=== PATIENT | female | born 1960 | race Caucasian/White ===

== ENCOUNTER 2016-08-12 18:47 | Observation (INO) | payer MEDICARE ==
[2016-08-12] MEDS ORDERED: ASPIRIN CHEW 81 MG TABLET ONE (20:11)
[2016-08-12] MEDS ORDERED: ASPIRIN CHEW 81 MG TABLET PO STA (20:11)
[2016-08-12] MEDS ORDERED: PROCHLORPERAZINE 10 MG/2 ML VIAL IVP PRN (20:21)
[2016-08-12] MEDS ORDERED: ZOLPIDEM 5 MG TABLET PO PRN (20:21)
[2016-08-12] MEDS ORDERED: oxyCODONE 5 MG TABLET PO PRN (20:21)
[2016-08-12] MEDS ORDERED: ONDANSETRON 4 MG/2 ML VIAL IVP PRN (20:21)
[2016-08-12] MEDS ORDERED: SODIUM CHLORIDE FLUSH 0.9% 10 ML SYRINGE IVP PRN (20:21)
[2016-08-12] MEDS ORDERED: PREGABALIN 150 MG PO SCH (21:00)
[2016-08-12] MEDS ORDERED: ATORVASTATIN 40 MG TABLET PO SCH (21:00)
[2016-08-12] MEDS ORDERED: METOPROLOL TARTRATE 25 MG TABLET PO SCH ×2 (21:00→23:24)
[2016-08-12] MEDS ORDERED: IOPAMIDOL-300 100 ML VIAL IVP ONE (21:33)
[2016-08-12] MEDS ORDERED: POTASSIUM CHLORIDE 20 MEQ TABLET PO STA (21:55)
[2016-08-12] MEDS: PREGABALIN 25 MG CAPSULE PO SCH (21:57)
[2016-08-12] MEDS: oxyCODONE 5 MG TABLET PO PRN (21:58)
[2016-08-12] MEDS: FLUTICASONE NASAL SPRAY NAS SCH (21:58)
[2016-08-12] MEDS: SODIUM CHLORIDE FLUSH 0.9% 10 ML SYRINGE IVP SCH (21:58)
[2016-08-12] MEDS: CYCLOBENZAPRINE 10 MG TABLET PO SCH (21:58)
[2016-08-12] MEDS: PREGABALIN 100 MG CAPSULE PO SCH (21:58)
[2016-08-12] MEDS: ALPRAZolam 0.25 MG TABLET PO SCH (22:05)
[2016-08-12] MEDS: lamoTRIgine 100 MG TABLET PO SCH (22:05)
[2016-08-12] MEDS: ACETAMINOPHEN 325 MG TABLET PO PRN (23:41)
[2016-08-12] MEDS: METOPROLOL TARTRATE 25 MG TABLET PO SCH (23:56)
[2016-08-13] MEDS: ACETAMINOPHEN 325 MG TABLET PO PRN ×2 (06:07→11:50)
[2016-08-13] MEDS: CYCLOBENZAPRINE 10 MG TABLET PO SCH (06:08)
[2016-08-13] MEDS: SODIUM CHLORIDE FLUSH 0.9% 10 ML SYRINGE IVP SCH (06:09)
[2016-08-13] MEDS: oxyCODONE 5 MG TABLET PO PRN (06:31)
[2016-08-13] MEDS ORDERED: PANTOPRAZOLE 40 MG TABLET PO SCH (07:00)
[2016-08-13] MEDS ORDERED: ASPIRIN 325 MG TABLET PO SCH (08:00)
[2016-08-13] MEDS: METOPROLOL TARTRATE 25 MG TABLET PO SCH (08:21)
[2016-08-13] MEDS: PREGABALIN 100 MG CAPSULE PO SCH (08:22)
[2016-08-13] MEDS: PREGABALIN 25 MG CAPSULE PO SCH (08:23)
[2016-08-13] MEDS: ALPRAZolam 0.25 MG TABLET PO SCH (08:23)
[2016-08-13] MEDS: lamoTRIgine 100 MG TABLET PO SCH (08:34)
[2016-08-13] MEDS: FLUTICASONE NASAL SPRAY NAS SCH (08:35)
[2016-08-13] MEDS ORDERED: POLYETHYLENE GLYCOL 3350 17 GM PACKET PO SCH (09:00)
[2016-08-13] MEDS ORDERED: DULoxetine 30 MG CAPSULE PO SCH (09:00)
[2016-08-13] MEDS ORDERED: ENOXAPARIN 40 MG/0.4 ML SYRINGE SUBQ SCH (09:00)
[2016-08-13] MEDS ORDERED: lamoTRIgine 100 MG TABLET PO SCH (10:10)
[2016-08-14] MEDS ORDERED: fentaNYL 25 MCG PATCH TOP SCH (09:00)
== END 2016-08-13 13:40 | disposition home or self-care (01) ==
DX: R20.0 Anesthesia of skin (principal); R53.1 Weakness; E87.6 Hypokalemia; R51 Headache; I10 Essential (primary) hypertension; E78.1 Pure hyperglyceridemia; G89.29 Other chronic pain; R07.89 Other chest pain; F45.42 Pain disorder with related psychological factors; F06.31 Mood disorder due to known physiological condition with depressive features; F32.9 Major depressive disorder, single episode, unspecified; M79.7 Fibromyalgia; M50.21 Other cervical disc displacement, high cervical region; M51.24 Other intervertebral disc displacement, thoracic region; M51.26 Other intervertebral disc displacement, lumbar region; G47.20 Circadian rhythm sleep disorder, unspecified type; K21.9 Gastro-esophageal reflux disease without esophagitis; I73.00 Raynaud's syndrome without gangrene; F17.200 Nicotine dependence, unspecified, uncomplicated; Z91.81 History of falling; Z87.820 Personal history of traumatic brain injury; Z79.82 Long term (current) use of aspirin; Z79.891 Long term (current) use of opiate analgesic
CPT/HCPCS: 36415; 70450; 70496; 70498; 70551; 80053; 80061; 83036; 83690; 84484; 85025; 85610; 93005; 93010; 96372; 97163; 99284; 99285; A9270; C8929; G0378; J1650; Q9967